=== PATIENT | female | born 1945 | race American Indian/Alaskan Native ===

== ENCOUNTER 2018-09-18 19:28 | Inpatient (IN) | payer MEDICARE, BC ==
[2018-09-18] MEDS ORDERED: DUONEB *Not for PRN Use IH ONE ×2 (19:55→22:50)
--- NOTE | 2018-09-18 20:00 | Emergency Department Report ---
HPI - General Chief Complaint: Dyspnea/Respdistress Time Seen by Provider: 09/18/18 19:50 - HPI HPI: 73 year-old female presents to the emergency department via EMS from the [facility] for evaluation of a cough and some chest c ongestion. The patient has a past medical history of CHF, dementia and hypertension. When asked what brings her to the hospital today the patient says that she does not know. When I describe triage notes regarding chest congestion and a cough the patient says "that sounds right." She was recently admitted to [facility] for about 10 days in mid to late August for some lower extremity swelling and congestion and/or shortness of breath. During that admission patient had a stress test that showed signs of previous infarction but nothing acute. She was found to have some community acquired pneumonia for which she was treated with Levaquin. There was some acute on chronic CHF at at time. ED Past Medical Hx - Past Medical History Hx Hypertension: Yes Hx Congestive Heart Failure: Yes Hx Dementia: Yes - Social History Smoking Status: Never Smoker Substance Use Type: None - Medications Home Medications: Home Medications Medication Instructions Recorded Confirmed Last Taken Type AtorvaSTATin [Lipitor] 40 mg PO QHS #30 tab 09/09/18 09/19/18 09/18/18 Rx RX: Furosemide [Lasix TAB] 40 mg PO QDAY #30 tablet 09/09/18 09/19/18 09/18/18 Rx RX: Lisinopril [Zestril TAB] 40 mg PO QDAY #30 tablet 09/09/18 09/19/18 09/18/18 Rx RX: Metoprolol [Lopressor TAB] 25 mg PO BID #60 tablet 09/09/18 09/19/18 09/18/18 Rx RX: Potassium Chloride [K-Dur] 20 meq PO DAILY #14 tablet 09/09/18 09/19/18 09/18/18 Rx ED Review of Systems ROS: Stated complaint: CONGESTION Other details as noted in HPI Comment: All other systems reviewed and negative Constitutional: denies: chills, fever Eyes: denies: eye pain, vision change ENT: denies: ear pain, throat pain Respiratory: cough, wheezing Cardiovascular: edema. denies: chest pain Gastrointestinal: denies: abdominal pain, vomiting Genitourinary: denies: dysuria, discharge Musculoskeletal: denies: back pain, arthralgia Skin: denies: rash, lesions Neurological: denies: headache, weakness Physical Exam - Physical Exam Vital Signs: Vital Signs 09/18/18 09/18/18 09/18/18 19:38 19:42 19:45 Temperature 98.4 F Pulse Rate 53 L 53 L 50 L Respiratory 17 22 25 H Rate Blood Pressure 152/80 148/72 O2 Sat by Pulse 92 100 99 Oximetry Physical Exam: GENERAL: The patient is well-developed well-nourished. HEENT: Normocephalic. Atraumatic. Patient has moist mucous membranes. EYES: Extraocular motions are intact. Pupils are equal and reactive to light bilaterally. NECK: Supple. Trachea is midline. CHEST/LUNGS: Mild wheezing throughout the chest. There are some coarse breath sounds heard. Tachypnea. No accessory muscle use. There is no respiratory distress noted. HEART/CARDIOVASCULAR: Regular. There is no tachycardia. There is no obvious murmur. ABDOMEN: Abdomen is soft, nontender. Patient has normal bowel sounds. There is no abdominal distention. SKIN: Skin is warm and dry. NEURO: The patient is awake and calm and cooperative. The patient has normal speech. MUSCULOSKELETAL: There is no tenderness or deformity. There is no evidence of acute injury. ED Course Vital Signs 09/18/18 09/18/18 09/18/18 19:38 19:42 19:45 Temperature 98.4 F Pulse Rate 53 L 53 L 50 L Respiratory 17 22 25 H Rate Blood Pressure 152/80 148/72 O2 Sat by Pulse 92 100 99 Oximetry ED Medical Decision Making - Lab Data Result diagrams: 09/18/18 20:45 09/18/18 20:45 - EKG Data -: EKG Interpreted by Me EKG shows normal: sinus rhythm (PACs), axis, intervals, QRS complexes, ST-T waves Rate: bradycardia (52 bpm) - EKG Data When compared to previous EKG there are: no significant change Interpretation: unchanged when compared t (09/04/18) - Radiology Data Radiology results: report reviewed, image reviewed interpreted by me: Chest x-ray shows a right basilar opacity concerning for infiltrate and/or pneumonia. There is some pulmonary vascular congestion. No pneumothorax, no focal consolidation. PROCEDURE: CT ANGIO CHEST TECHNIQUE: Computerized tomographic angiography of the chest was performed after the IV injection of iodinated nonionic contrast including image processing. The image data was postprocessed using 2- dimensional multiplanar reformatted (MPR) and 3-dimensional (MIP and/or volume rendered) techniques. HISTORY: SOB, elevated dimer COMPARISON: No prior studies are available for comparison. FINDINGS: Bilateral pulmonary arteries and their branches demonstrate normal opacification without filling defects. Aorta is not opacified. It is of normal caliber. Coronary arterial calcification is identified. Bilateral hilar structures are within normal limits. There is moderate degree cardiomegaly. No lymphadenopathy is noted. Thyroid is unremarkable. There is reflux of contrast into inferior vena cava and hepatic veins consistent with right heart failure. An irregular ill-defined patchy density measuring 2.0 x 2.2 centimeters is noted in the peripheral aspect of the right middle lobe. A similar but smaller patchy density measuring 1.2 x 1.2 centimeters is noted in the posterior segment left lower lobe. Liver demonstrates a hypodense lesion measuring 1.6 x 2.2 centimeters in segment 4. Vertebral height is normal. IMPRESSION: No evidence of pulmonary embolism Small patchy densities in right middle lobe and left lower lobe are consistent with pneumonia. Moderate cardiomegaly Right heart failure Hypodense lesion segment 4 left lobe liver measuring 1.6 x 2.2 centimeters. This may be further evaluated using ultrasound with Doppler or dynamic post-contrast CT abdomen Transcribed By: [facility] [place] Dictated By: FABIOLA FRY Electronically Authenticated By: FABIOLA FRY Signed Date/Time: 09/18/18 9305 - Medical Decision Making Patient was sent back to the emergency department secondary to some chest congestion and concerns of shortness of breath. Patient does have some wheezing and coarse breath sounds heard. She does not appear to be in any respiratory distress however. Labs show a BNP of about 5000 and a elevated d-dimer of greater than 3000. Chest x-ray showed a area to the right base that appears concerning for infiltrate and/or pneumonia. CT angiography of the chest shows both right middle and lower lobe patchy densities and some signs of some mild edema. The patient's BNP is coming down from when she was discharged a few days ago from 7500 to about 5000 and she is currently on Lasix already. However the patient has 2 different names of patchy densities showing a pneumonia that has not yet resolved despite a full treatment of Levaquin. Patient was given Rocephin and azithromycin. She will be admitted to the hospital for further evaluation and treatment and was accepted for admission by the hospitalist, Dr. Miller. - Differential Diagnosis pneumonia, CHF, PE, bronchitis Critical Care Time: No Critical care attestation.: If time is entered above; I have spent that time in minutes in the direct care of this critically ill patient, excluding procedure time. ED Disposition Clinical Impression: CHF (congestive heart failure) Qualifiers: Heart failure type: unspecified Heart failure chronicity: acute on chronic Qualified Code(s): I50.9 - Heart failure, unspecified Pneumonia Qualifiers: Pneumonia type: due to unspecified organism Laterality: right Lung location: unspecified part of lung Qualified Code(s): J18.9 - Pneumonia, unspecified organism Disposition: OP ADMIT IP TO THIS HOSP Is pt being admited?: Yes Condition: Fair Time of Disposition: 21:00
[2018-09-18 21:02] LABS: Eosinophils % (Auto) 1.1 % (0.0-4.3); Hemoglobin 10.3 gm/dl (10.1-14.3); Lymphocytes # (Auto) 0.8 K/mm3 (1.2-5.4); Mean Corpuscular HGB Conc 31 % (30-34); Mean Corpuscular Volume 73 fl (79-97); Monocytes # (Auto) 0.4 K/mm3 (0.0-0.8); Platelet Count 222 K/mm3 (140-440); Red Blood Count 4.54 M/mm3 (3.65-5.03)
[2018-09-18 21:21] LABS: BUN/Creatinine Ratio 29; Blood Urea Nitrogen 23 mg/dL (7-17); Calcium 8.2 mg/dL (8.4-10.2); Hemolysis Index 22
--- NOTE | 2018-09-18 21:52 | XRay Report ---
FINAL REPORT PROCEDURE: XR CHEST 1V AP TECHNIQUE: Chest radiograph anteroposterior view. CPT 13791 HISTORY: sob COMPARISON: 09/03/2018. FINDINGS: Heart: Moderate degree cardiomegaly. Mediastinum/Vessels: Normal. Lungs/Pleural space: Diffuse prominence of interstitial markings is noted. A small patchy density is noted in the peripheral aspect of right lower lobe measuring 1.9 x 1.8 centimeters. Bilateral pleural spaces are clear. L. Bony thorax: No acute osseous abnormality. Life support devices: None. IMPRESSION: Prominent interstitial markings most likely represent interstitial fibrosis versus interstitial edema Small patchy density in the peripheral right lower lobe has minimally decreased in size in the interv al most likely representing partially resolved pneumonia. Follow-up studies are recommended. Moderate degree cardiomegaly is stable.
--- NOTE | 2018-09-18 23:01 | Cat Scan Report ---
FINAL REPORT PROCEDURE: CT ANGIO CHEST TECHNIQUE: Computerized tomographic angiography of the chest was performed after the IV injection of iodinated nonionic contrast including image processing. The image data was postprocessed using 2-dim ensional multiplanar reformatted (MPR) and 3-dimensional (MIP and/or volume rendered) techniques. HISTORY: SOB, elevated dimer COMPARISON: No prior studies are available for comparison. FINDINGS: Bilateral pulmonary arteries and their branches demonstrate normal opacification without filling defe cts. Aorta is not opacified. It is of normal caliber. Coronary arterial calcification is identified. Bilateral hilar structures are within normal limits. There is moderate degree cardiomegaly. No lympha denopathy is noted. Thyroid is unremarkable. There is reflux of contrast into inferior vena cava and hepatic veins consistent with right heart failure. An irregular ill-defined patchy density measuring 2.0 x 2.2 centimeters is noted in the peripheral aspect of the right middle lobe. A similar but small er patchy density measuring 1.2 x 1.2 centimeters is noted in the posterior segment left lower lobe. Liver demonstrates a hypodense lesion measuring 1.6 x 2.2 centimeters in segment 4. Vertebral height is normal. IMPRESSION: No evidence of pulmonary embolism Small patchy densities in right middle lobe and left lower lobe are consistent with pneumonia. Moderate cardiomegaly Right heart failure Hypodense lesion segment 4 left lobe liver measuring 1.6 x 2.2 centimeters. This may be further evalu ated using ultrasound with Doppler or dynamic post-contrast CT abdomen
[2018-09-19] MEDS ORDERED: ZITHROMAX 500 MG in NACL 0.9% 250ML 250 ML IV ONE (01:00)
[2018-09-19] MEDS ORDERED: ROCEPHIN/NS 1 GM/50 ML 1 GM/50 ML BAG IV ONE (01:30)
[2018-09-19] MEDS ORDERED: ZOFRAN IV PRN (02:09)
[2018-09-19] MEDS ORDERED: SODIUM CHLORIDE FLUSH SYRINGE 10 ML IV PRN (02:09)
--- NOTE | 2018-09-19 02:10 | History and Physical Report ---
History of Present Illness Date of examination: 09/19/18 History of present illness: 72-year-old woman with no hypertension, CHF, coronary artery disease dementia comes emergency room with complaints of shortness of breath, lower extremity edema .The patient was just discharged from the hospital on September 13, she was treated for CHF, pneumonia. She still has a cough, she does not know the color of the phlegm. Review Of Systems unobtainable PAST MEDICAL HISTORY:hypertension, CHF, coronary artery disease, dementia PAST SURGICAL HISTORY:Unknown FAMILY HISTORY:Unknown SOCIAL HISTORY: Denies alcohol, tobacco, drug Medications and Allergies Allergies Allergy/AdvReac Type Severity Reaction Status Date / Time No Known Allergies Allergy Unverified 09/03/18 18:11 Home Medications Medication Instructions Recorded Confirmed Last Taken Type Aspirin [Aspirin BABY CHEW TAB] 81 mg PO QDAY #30 tab.chew 09/09/18 Unknown Rx AtorvaSTATin [Lipitor] 40 mg PO QHS #30 tab 09/09/18 Unknown Rx Furosemide [Lasix TAB] 40 mg PO QDAY #30 tablet 09/09/18 Unknown Rx Lisinopril [Zestril TAB] 40 mg PO QDAY #30 tablet 09/09/18 Unknown Rx Metoprolol [Lopressor TAB] 25 mg PO BID #60 tablet 09/09/18 Unknown Rx Potassium Chloride [K-Dur] 20 meq PO DAILY #14 tablet 09/09/18 Unknown Rx Exam - Physical Exam Narrative exam: Gen. appearance: Patient lying in bed in no acute distress HEENT: Normocephalic/atraumatic, pupils equal round reactive to light, extra alkaline movement intact, no scleral icterus, no JVD or thyromegaly or nodule, neck is supple, mucous membrane moist, no erythema or exudate Heart: S1-S2, regular rate and rhythm Lungs: Clrackles bilateral breathing comfortable Abdomen: Positive bowel sounds, nontender, nondistended, no organomegaly Extremities:1+ edema, no cyanosis, clubbing Neuro:: cranial nerves II-12 intact, speech, motor intact Skin: No rash, nodules, warm dry - Constitutional Vitals: Temp Pulse Resp BP Pulse Ox 98.4 F 58 L 14 138/62 91 09/18/18 19:42 09/19/18 00:18 09/18/18 22:15 09/19/18 00:15 09/19/18 00:15 Results - Labs CBC & Chem 7: 09/18/18 20:45 09/18/18 20:45 Labs: Abnormal lab results 09/18/18 09/18/18 09/18/18 Range/Units 20:45 20:45 20:45 WBC 2.9 L (4.5-11.0) K/mm3 MCV 73 L (79-97) fl MCH 23 L (28-32) pg RDW 19.0 H (13.2-15.2) % [place] % (Auto) 15.0 H (0.0-7.3) % Lymph # 0.8 L (1.2-5.4) K/mm3 Seg Neutrophils # 1.6 L (1.8-7.7) K/mm3 D-Dimer (0-234) ng/mlDDU Sodium 136 L (137-145) mmol/L BUN 23 H (7-17) mg/dL Calcium 8.2 L (8.4-10.2) mg/dL NT-Pro-B Natriuret Pep 5122 H (0-900) pg/mL 09/18/18 Range/Units 20:45 WBC (4.5-11.0) K/mm3 MCV (79-97) fl MCH (28-32) pg RDW (13.2-15.2) % [place] % (Auto) (0.0-7.3) % Lymph # (1.2-5.4) K/mm3 Seg Neutrophils # (1.8-7.7) K/mm3 D-Dimer 3766.87 H (0-234) ng/mlDDU Sodium (137-145) mmol/L BUN (7-17) mg/dL Calcium (8.4-10.2) mg/dL NT-Pro-B Natriuret Pep (0-900) pg/mL - Imaging and Cardiology EKG: image reviewed Chest x-ray: image reviewed CT scan - chest: report reviewed Assessment and Plan Assessment CHF acute on chronic, systolic Pneumonia, community-acquired Hypertension Coronary artery disease Dementia Plan Admit to medicine Diurese with IV lasix, start Beta analy, JASON inhibitor, aspirin check cardiac enzymes consult cardiology, recent echo was done Monitor I's and O's, daily weights Continue Levaquin for pneumonia DVT prophalaxis
[2018-09-19] MEDS: LASIX IV SCH ×2 (05:17→18:04)
[2018-09-19 06:40] LABS: Creatine Kinase MB 1.4 ng/mL (0.0-4.0)
[2018-09-19 07:23] LABS: Chol/HDL Ratio 3.53 %
[2018-09-19] MEDS: BABY ASPIRIN PO SCH (09:58)
[2018-09-19] MEDS: LOVENOX SUB-Q SCH (09:59)
[2018-09-19] MEDS: ZESTRIL PO SCH (09:59)
[2018-09-19] MEDS: LOPRESSOR PO SCH ×3 (09:59→21:35)
[2018-09-19] MEDS: SODIUM CHLORIDE FLUSH SYRINGE 10 ML IV SCH ×2 (09:59→21:35)
[2018-09-19] MEDS: LEVAQUIN PO SCH (09:59)
[2018-09-19] MEDS ORDERED: ZESTRIL PO SCH (10:00)
[2018-09-19 10:03] LABS: Creatine Kinase MB 1.5 ng/mL (0.0-4.0)
--- NOTE | 2018-09-19 10:28 | Consultation ---
History of Present Illness Consult date: 09/19/18 Requesting physician: STEVEN YOU Consult reason: congestive heart failure History of present illness: The pt is a 73 YO female with a past medical history of HFrEF, CMP, SVT, HTN, dementia. She has been seen by our practice on prior hospitalization. She is unable to provide HPI due to dementia and thus HPI obtained per the chart. She presented to the emergency department via EMS from the [facility] fo r evaluation of a cough and some chest congestion. When asked what brings her to the hospital the patient says that she does not know. She states that she "has some more work to do here". She was recently admitted to [facility] for about 10 days in mid to late August for treatment of HFrEF, SVT, PNA. Echo done 09/03/2018 showed EF 20-25%, LA severely dilated, mild MR, mod to severe TR, pseudonormalization, RV mod dilated, mild pulm HTN with RVSP 43mmHg. Lexiscan MPI stress test done 09/05/2018 showed mild ischemia, EF 16%. Past History Past Medical History: arrhythmia (SVT), heart failure, hypertension, other (dementia) Medications and Allergies Allergies Allergy/AdvReac Type Severity Reaction Status Date / Time No Known Allergies Allergy Unverified 09/03/18 18:11 Home Medications Medication Instructions Recorded Confirmed Last Taken Type AtorvaSTATin [Lipitor] 40 mg PO QHS #30 tab 09/09/18 09/19/18 09/18/18 Rx Furosemide [Lasix TAB] 40 mg PO QDAY #30 tablet 09/09/18 09/19/18 09/18/18 Rx Lisinopril [Zestril TAB] 40 mg PO QDAY #30 tablet 09/09/18 09/19/18 09/18/18 Rx Metoprolol [Lopressor TAB] 25 mg PO BID #60 tablet 09/09/18 09/19/18 09/18/18 Rx Potassium Chloride [K-Dur] 20 meq PO DAILY #14 tablet 09/09/18 09/19/18 09/18/18 Rx Active Meds: Active Medications Acetaminophen (Tylenol) 650 mg PO Q4H PRN PRN Reason: Pain MILD(1-3)/Fever >100.5/JARQUIN Aspirin (Baby Aspirin) 81 mg PO QDAY CHRISTOPHER Last Admin: 09/19/18 09:58 Dose: 81 mg Documented by: Atorvastatin Calcium (Lipitor) 40 mg PO QHS [facility] Enoxaparin Sodium (Lovenox) 40 mg SUB-Q QDAY [facility] Last Admin: 09/19/18 09:59 Dose: 40 mg Documented by: Furosemide (Lasix) 40 mg IV BID@0600,1800 [facility] Last Admin: 09/19/18 05:17 Dose: 40 mg Documented by: Levofloxacin (Levaquin) 500 mg PO DAILY [facility] Last Admin: 09/19/18 09:59 Dose: 500 mg Documented by: Lisinopril (Zestril) 5 mg PO QDAY [facility] Last Admin: 09/19/18 09:59 Dose: 5 mg Documented by: Metoprolol Tartrate (Lopressor) 25 mg PO BID [facility] Last Admin: 09/19/18 09:59 Dose: 25 mg Documented by: Ondansetron HCl (Zofran) 4 mg IV Q8H PRN PRN Reason: Nausea And Vomiting Sodium Chloride (Sodium Chloride Flush Syringe 10 Ml) 10 ml IV BID [facility] Last Admin: 09/19/18 09:59 Dose: 10 ml Documented by: Sodium Chloride (Sodium Chloride Flush Syringe 10 Ml) 10 ml IV PRN PRN PRN Reason: LINE FLUSH Review of Systems All systems: negative (no current complaints) Physical Examination Vital Signs Pulse Resp Pulse Ox 53 L 17 92 09/18/18 19:38 09/18/18 19:38 09/18/18 19:38 General appearance: no acute distress HEENT: Positive: PERRL Neck: Positive: neck supple, trachea midline Cardiac: Positive: Reg Rate and Rhythm, S1/S2 Lungs: Positive: Decreased Breath Sounds Neuro: Positive: Grossly Intact, Other (dementia) Abdomen: Negative: Tender Skin: Negative: Rash, Wound Musculoskeletal: No Pain Extremities: Present: edema (trace BLE) Results 09/18/18 20:45 09/18/18 20:45 Cardiac Enzymes 09/19/18 09/19/18 Range/Units 05:48 09:36 CK-MB (CK-2) 1.4 1.5 (0.0-4.0) ng/mL Lipids 09/19/18 Range/Units 05:48 Triglycerides 84 (2-149) mg/dL Cholesterol 152 (50-199) mg/dL HDL Cholesterol 43 (40-59) mg/dL Cholesterol/HDL Ratio 3.53 % CBC 09/18/18 Range/Units 20:45 WBC 2.9 L (4.5-11.0) K/mm3 RBC 4.54 (3.65-5.03) M/mm3 Hgb 10.3 (10.1-14.3) gm/dl Hct 33.0 (30.3-42.9) % Plt Count 222 (140-440) K/mm3 Lymph # 0.8 L (1.2-5.4) K/mm3 [place] # 0.4 (0.0-0.8) K/mm3 Eos # 0.0 (0.0-0.4) K/mm3 Baso # 0.0 (0.0-0.1) K/mm3 Comprehensive Metabolic Panel 09/18/18 Range/Units 20:45 Sodium 136 L (137-145) mmol/L Potassium 4.5 (3.6-5.0) mmol/L Chloride 100.9 (98-107) mmol/L Carbon Dioxide 26 (22-30) mmol/L BUN 23 H (7-17) mg/dL Creatinine 0.8 (0.7-1.2) mg/dL Glucose 93 (65-100) mg/dL Calcium 8.2 L (8.4-10.2) mg/dL - Imaging and Cardiology Echo: report reviewed (09/03/2018 showed EF 20-25%, LA severely dilated, mild MR, mod to severe TR, pseudonormalization, RV mod dilated, mild pulm HTN with RVSP 43mmHg. ) EKG: report reviewed, image reviewed EKG interpretations - Telemetry EKG Rhythm: Sinus Bradycardia - EKG Sinus rhythms and dysrhythmias: sinus rhythm Assessment and Plan Echo done 09/03/2018 showed EF 20-25%, LA severely dilated, mild MR, mod to severe TR, pseudonormalization, RV mod dilated, mild pulm HTN with RVSP 43mmHg. Lexiscan MPI stress test done 09/05/2018 showed mild ischemia, EF 16%. DDimer elevated - chest CTA negative for PE. Agree with present cardiac management. Abx per primary. The patient has been seen in conjunction with Dr. Alvarado who agrees with the assessment and plan of care. - Patient Problems (1) Acute HFrEF (heart failure with reduced ejection fraction) Current Visit: Yes Status: Acute (2) Pneumonia Current Visit: Yes Status: Acute Qualifiers: Pneumonia type: due to unspecified organism Laterality: right Lung location: unspecified part of lung Qualified Code(s): J18.9 - Pneumonia, unspecified organism (3) Cardiomyopathy Current Visit: Yes Status: Chronic (4) Hypertension Current Visit: Yes Status: Chronic Qualifiers: Hypertension type: essential hypertension Qualified Code(s): I10 - Essential (primary) hypertension (5) H/O supraventricular tachycardia Current Visit: Yes Status: Chronic (6) Dementia Current Visit: Yes Status: Chronic
--- NOTE | 2018-09-19 17:11 | Event Note ---
Date: 09/19/18 Patient presented with shortness of breath. She is diagnosed with CHF exacerbation, pneumonia. I have seen and examined her. cont mery Garza.
[2018-09-20 05:22] LABS: Basophils % (Auto) 0.6 % (0.0-1.8); Eosinophils # (Auto) 0.1 K/mm3 (0.0-0.4); Eosinophils % (Auto) 4.7 % (0.0-4.3); Hematocrit 29.6 % (30.3-42.9); Hemoglobin 9.3 gm/dl (10.1-14.3); Lymphocytes % (Auto) 34.1 % (13.4-35.0); Mean Corpuscular HGB Conc 32 % (30-34); Mean Corpuscular Volume 72 fl (79-97); Monocytes # (Auto) 0.3 K/mm3 (0.0-0.8); Monocytes % (Auto) 11.2 % (0.0-7.3); Platelet Count 253 K/mm3 (140-440); Red Cell Distribution Width 18.8 % (13.2-15.2)
[2018-09-20 05:44] LABS: BUN/Creatinine Ratio 31; Blood Urea Nitrogen 22 mg/dL (7-17); Calcium 8.2 mg/dL (8.4-10.2); Hemolysis Index 0
[2018-09-20] MEDS: LASIX IV SCH ×2 (06:45→19:03)
[2018-09-20] MEDS: BABY ASPIRIN PO SCH (09:41)
[2018-09-20] MEDS: LEVAQUIN PO SCH (09:41)
[2018-09-20] MEDS: ZESTRIL PO SCH (09:41)
[2018-09-20] MEDS: LOPRESSOR PO SCH (09:42)
[2018-09-20] MEDS: LOVENOX SUB-Q SCH (09:42)
[2018-09-20] MEDS: SODIUM CHLORIDE FLUSH SYRINGE 10 ML IV SCH ×2 (09:43→22:14)
--- NOTE | 2018-09-20 13:29 | Progress Note ---
Assessment and Plan Hold home lopressor in setting of persistent sinus bradycardia. Cont IV diuretics. Abx per primary. Possible d/c from cardiology standpoint in AM. The patient has been seen in conjunction with Dr. Alvarado who agrees with the assessment and plan of care. - Patient Problems (1) Acute HFrEF (heart failure with reduced ejection fraction) Current Visit: Yes Status: Acute (2) Pneumonia Current Visit: Yes Status: Acute Qualifiers: Pneumonia type: due to unspecified organism Laterality: right Lung location: unspecified part of lung Qualified Code(s): J18.9 - Pneumonia, unspecified organism (3) Cardiomyopathy Current Visit: Yes Status: Chronic (4) Hypertension Current Visit: Yes Status: Chronic Qualifiers: Hypertension type: essential hypertension Qualified Code(s): I10 - Essential (primary) hypertension (5) H/O supraventricular tachycardia Current Visit: Yes Status: Chronic (6) Dementia Current Visit: Yes Status: Chronic Subjective Date of service: 09/20/18 Principal diagnosis: HF Interval history: pt resting in bed, no current complaints. tele reviewed - in sinus bradycardia HR 40s overnight. Objective Last Vital Signs Temp 98.0 F 09/20/18 09:10 Pulse 48 L 09/20/18 09:42 Resp 18 09/20/18 09:10 BP 148/78 09/20/18 09:42 Pulse Ox 98 09/20/18 09:10 - Physical Examination General: No Apparent Distress HEENT: Positive: PERRL Neck: Positive: neck supple, trachea midline Cardiac: Positive: Regular Rhythm, S1/S2 Lungs: Positive: Decreased Breath Sounds Neuro: Positive: Grossly Intact, Other (dementia) Abdomen: Negative: Tender Skin: Negative: Rash, Wound Musculoskeletal: No Pain Extremities: Present: edema (trace BLE) - Labs and Meds CBC 09/20/18 Range/Units 04:54 WBC 2.9 L (4.5-11.0) K/mm3 RBC 4.10 (3.65-5.03) M/mm3 Hgb 9.3 L (10.1-14.3) gm/dl Hct 29.6 L (30.3-42.9) % Plt Count 253 (140-440) K/mm3 Lymph # 1.0 L (1.2-5.4) K/mm3 [place] # 0.3 (0.0-0.8) K/mm3 Eos # 0.1 (0.0-0.4) K/mm3 Baso # 0.0 (0.0-0.1) K/mm3 Comprehensive Metabolic Panel 09/20/18 Range/Units 04:54 Sodium 142 (137-145) mmol/L Potassium 3.9 (3.6-5.0) mmol/L Chloride 102.9 (98-107) mmol/L Carbon Dioxide 29 (22-30) mmol/L BUN 22 H (7-17) mg/dL Creatinine 0.7 (0.7-1.2) mg/dL Glucose 81 (65-100) mg/dL Calcium 8.2 L (8.4-10.2) mg/dL - Imaging and Cardiology EKG: report reviewed, image reviewed Echo: report reviewed (09/03/2018 showed EF 20-25%, LA severely dilated, mild MR, mod to severe TR, pseudonormalization, RV mod dilated, mild pulm HTN with RVSP 43mmHg. ) - Telemetry EKG Rhythm: Sinus Bradycardia - EKG Sinus rhythms and dysrhythmias: sinus rhythm
--- NOTE | 2018-09-20 16:02 | Progress Note ---
Assessment and Plan Assessment and plan: Assessment Acute on chronic, systolic CHF Pneumonia, community-acquired Hypertension Coronary artery disease Dementia Plan Admited to Tele Lasix IV Continue analy, JASON inhibitor, aspirin check cardiac enzymes Cardiology, recent echo was done Monitor I's and O's, daily weights Continue Levaquin for pneumonia DVT prophylaxis with Lovenox Discussed with Case management concerning placement History Interval history: Shortness of breath Hospitalist Physical - Physical exam Narrative exam: GEN: Not in acute distress, malnourished HEENT: Normocephalic, atraumatic, Neck: supple, No JVD Lungs: Bilateral crackles,, no wheeze Heart:S1 and S2 regular, no murmurs, rubs or gallop, Abd:soft, non tender, non distended, normal bowel sounds Ext: No edema, no clubbing or cyanosis Neuro: Awake,alert, oriented x 3, No focal signs psych:Normal mood - Constitutional Vitals: Temp Pulse Resp BP Pulse Ox 98.0 F 47 L 18 148/78 98 09/20/18 09:10 09/20/18 12:00 09/20/18 09:10 09/20/18 09:42 09/20/18 09:10 General appearance: Present: no acute distress Results - Labs CBC & Chem 7: 09/20/18 04:54 09/20/18 04:54 Labs: Laboratory Last Values WBC 2.9 K/mm3 (4.5-11.0) L 09/20/18 04:54 RBC 4.10 M/mm3 (3.65-5.03) 09/20/18 04:54 Hgb 9.3 gm/dl (10.1-14.3) L 09/20/18 04:54 Hct 29.6 % (30.3-42.9) L 09/20/18 04:54 MCV 72 fl (79-97) L 09/20/18 04:54 MCH 23 pg (28-32) L 09/20/18 04:54 MCHC 32 % (30-34) 09/20/18 04:54 RDW 18.8 % (13.2-15.2) H 09/20/18 04:54 Plt Count 253 K/mm3 (140-440) 09/20/18 04:54 Lymph % (Auto) 34.1 % (13.4-35.0) 09/20/18 04:54 [place] % (Auto) 11.2 % (0.0-7.3) H 09/20/18 04:54 Eos % (Auto) 4.7 % (0.0-4.3) H 09/20/18 04:54 Baso % (Auto) 0.6 % (0.0-1.8) 09/20/18 04:54 Lymph # 1.0 K/mm3 (1.2-5.4) L 09/20/18 04:54 [place] # 0.3 K/mm3 (0.0-0.8) 09/20/18 04:54 Eos # 0.1 K/mm3 (0.0-0.4) 09/20/18 04:54 Baso # 0.0 K/mm3 (0.0-0.1) 09/20/18 04:54 Seg Neutrophils % 49.4 % (40.0-70.0) 09/20/18 04:54 Seg Neutrophils # 1.4 K/mm3 (1.8-7.7) L 09/20/18 04:54 D-Dimer 3766.87 ng/mlDDU (0-234) H 09/18/18 20:45 Sodium 142 mmol/L (137-145) 09/20/18 04:54 Potassium 3.9 mmol/L (3.6-5.0) 09/20/18 04:54 Chloride 102.9 mmol/L (98-107) 09/20/18 04:54 Carbon Dioxide 29 mmol/L (22-30) 09/20/18 04:54 Anion Gap 14 mmol/L 09/20/18 04:54 BUN 22 mg/dL (7-17) H 09/20/18 04:54 Creatinine 0.7 mg/dL (0.7-1.2) 09/20/18 04:54 Estimated GFR > 60 ml/min 09/20/18 04:54 BUN/Creatinine Ratio 31 % 09/20/18 04:54 Glucose 81 mg/dL (65-100) 09/20/18 04:54 POC Glucose 122 (70-105) H 09/19/18 15:21 Calcium 8.2 mg/dL (8.4-10.2) L 09/20/18 04:54 Total Creatine Kinase 57 units/L (30-135) 09/19/18 09:36 CK-MB (CK-2) 1.5 ng/mL (0.0-4.0) 09/19/18 09:36 CK-MB (CK-2) Rel Index 2.6 (0-4) 09/19/18 09:36 Troponin T 0.032 ng/mL (0.00-0.029) H D 09/19/18 09:36 NT-Pro-B Natriuret Pep 5122 pg/mL (0-900) H 09/18/18 20:45 Triglycerides 84 mg/dL (2-149) 09/19/18 05:48 Cholesterol 152 mg/dL (50-199) 09/19/18 05:48 LDL Cholesterol Direct 101 mg/dL (50-130) 09/19/18 05:48 HDL Cholesterol 43 mg/dL (40-59) 09/19/18 05:48 Cholesterol/HDL Ratio 3.53 % 09/19/18 05:48 Nutrition/Malnutrition Assess - Dietary Evaluation Nutrition/Malnutrition Findings: Nutrition Notes Start: 09/19/18 14:51 Freq: Status: Active Protocol: Document 09/19/18 14:53 RM (Rec: 09/19/18 15:00 RM [id number]) Nutrition Notes Initial or Follow up Assessment Current Diagnoses Coronary Artery Disease Hypertension Heart Failure Other Pertinent Diagnosis Dementia, Pneu Current Diet Cardiac Labs/Tests Reviewed Medications Lasix Height 5 ft 7 in Weight 49.895 kg [place] Body Weight (lbs) 135.0 BMI 17.2 Subjective/Other Information Pt screened for low BMI. Pt asleep at time of visit and no family present to facilitate assessment. Noted temporal wasting. Burn Absent Trauma Absent #1 Nutrition Diagnoses Predicted suboptimal energy intake Etiology dementia As Evidenced by Signs and Symptoms pt BMI of 17.2 Is patient on ventilator? No Is Patient Ambulatory and/or Out of Bed No REE-([facility]-confined to bed) 1244.400 Kcal/Kg value to use for calculation 31 Approximate Energy Requirements Using 1547 kcal/Kg Calculation Used for Recommendations Kcal/kg Additional Notes Protein Needs: 50-60g (1-1.2g/ kg) Fluid Needs: 1 ml/kcal Nutrition Intervention Change Diet Order: Continue current Add Supplement/Snack (indicate name/kcal Ensure Enlive 1 daily /protein ) Provides kCal: 350 Provides Protein (gm) 20 Goal #1 Meet at least 75% of calorie and protein needs via PO and ONS intakes Anticipated Discharge Needs: Cardiac diet Follow-Up By: 09/23/18 Additional Comments Follow for PO and ONS intakes
[2018-09-21] MEDS: LASIX IV SCH ×2 (05:45→17:46)
[2018-09-21] MEDS: BABY ASPIRIN PO SCH (11:52)
[2018-09-21] MEDS: LEVAQUIN PO SCH (11:52)
[2018-09-21] MEDS: LOVENOX SUB-Q SCH (11:52)
[2018-09-21] MEDS: ZESTRIL PO SCH (11:52)
[2018-09-21] MEDS: SODIUM CHLORIDE FLUSH SYRINGE 10 ML IV SCH ×2 (11:53→21:55)
--- NOTE | 2018-09-21 17:36 | Progress Note ---
Assessment and Plan Assessment and plan: Assessment Acute on chronic, systolic CHF Pneumonia, community-acquired Hypertension Hyperlipidemia Coronary artery disease Dementia Sinus bradycardia Plan Admited to Tele Lasix IV Continue JASON inhibitor, Metoprolol and hold because of sinus bradycardia aspirin check cardiac enzymes Cardiology, recent echo was done Monitor I's and O's, daily weights Continue Levaquin for pneumonia Statin for hyperlipidemia DVT prophylaxis with Lovenox Discussed with Case management concerning placement History Interval history: Less shortness of breath No chest pain Hospitalist Physical - Physical exam Narrative exam: GEN: Not in acute distress, malnourished HEENT: Normocephalic, atraumatic, Neck: supple, No JVD Lungs: Bilateral crackles,, no wheeze Heart:S1 and S2 regular, no murmurs, rubs or gallop, Abd:soft, non tender, non distended, normal bowel sounds Ext: No edema, no clubbing or cyanosis Neuro: Awake,alert, oriented x 3, No focal signs psych:Normal mood - Constitutional Vitals: Temp Pulse Resp BP Pulse Ox 97.9 F 52 L 16 167/70 100 09/21/18 15:57 09/21/18 15:57 09/21/18 15:57 09/21/18 15:57 09/21/18 15:57 General appearance: Present: no acute distress Results - Labs CBC & Chem 7: 09/20/18 04:54 09/20/18 04:54 Labs: Laboratory Last Values WBC 2.9 K/mm3 (4.5-11.0) L 09/20/18 04:54 RBC 4.10 M/mm3 (3.65-5.03) 09/20/18 04:54 Hgb 9.3 gm/dl (10.1-14.3) L 09/20/18 04:54 Hct 29.6 % (30.3-42.9) L 09/20/18 04:54 MCV 72 fl (79-97) L 09/20/18 04:54 MCH 23 pg (28-32) L 09/20/18 04:54 MCHC 32 % (30-34) 09/20/18 04:54 RDW 18.8 % (13.2-15.2) H 09/20/18 04:54 Plt Count 253 K/mm3 (140-440) 09/20/18 04:54 Lymph % (Auto) 34.1 % (13.4-35.0) 09/20/18 04:54 [place] % (Auto) 11.2 % (0.0-7.3) H 09/20/18 04:54 Eos % (Auto) 4.7 % (0.0-4.3) H 09/20/18 04:54 Baso % (Auto) 0.6 % (0.0-1.8) 09/20/18 04:54 Lymph # 1.0 K/mm3 (1.2-5.4) L 09/20/18 04:54 [place] # 0.3 K/mm3 (0.0-0.8) 09/20/18 04:54 Eos # 0.1 K/mm3 (0.0-0.4) 09/20/18 04:54 Baso # 0.0 K/mm3 (0.0-0.1) 09/20/18 04:54 Seg Neutrophils % 49.4 % (40.0-70.0) 09/20/18 04:54 Seg Neutrophils # 1.4 K/mm3 (1.8-7.7) L 09/20/18 04:54 D-Dimer 3766.87 ng/mlDDU (0-234) H 09/18/18 20:45 Sodium 142 mmol/L (137-145) 09/20/18 04:54 Potassium 3.9 mmol/L (3.6-5.0) 09/20/18 04:54 Chloride 102.9 mmol/L (98-107) 09/20/18 04:54 Carbon Dioxide 29 mmol/L (22-30) 09/20/18 04:54 Anion Gap 14 mmol/L 09/20/18 04:54 BUN 22 mg/dL (7-17) H 09/20/18 04:54 Creatinine 0.7 mg/dL (0.7-1.2) 09/20/18 04:54 Estimated GFR > 60 ml/min 09/20/18 04:54 BUN/Creatinine Ratio 31 % 09/20/18 04:54 Glucose 81 mg/dL (65-100) 09/20/18 04:54 POC Glucose 122 (70-105) H 09/19/18 15:21 Calcium 8.2 mg/dL (8.4-10.2) L 09/20/18 04:54 Total Creatine Kinase 57 units/L (30-135) 09/19/18 09:36 CK-MB (CK-2) 1.5 ng/mL (0.0-4.0) 09/19/18 09:36 CK-MB (CK-2) Rel Index 2.6 (0-4) 09/19/18 09:36 Troponin T 0.032 ng/mL (0.00-0.029) H D 09/19/18 09:36 NT-Pro-B Natriuret Pep 5122 pg/mL (0-900) H 09/18/18 20:45 Triglycerides 84 mg/dL (2-149) 09/19/18 05:48 Cholesterol 152 mg/dL (50-199) 09/19/18 05:48 LDL Cholesterol Direct 101 mg/dL (50-130) 09/19/18 05:48 HDL Cholesterol 43 mg/dL (40-59) 09/19/18 05:48 Cholesterol/HDL Ratio 3.53 % 09/19/18 05:48 Nutrition/Malnutrition Assess - Dietary Evaluation Nutrition/Malnutrition Findings: Nutrition Notes Start: 09/19/18 14:51 Freq: Status: Active Protocol: Document 09/19/18 14:53 RM (Rec: 09/19/18 15:00 RM [id number]) Nutrition Notes Initial or Follow up Assessment Current Diagnoses Coronary Artery Disease Hypertension Heart Failure Other Pertinent Diagnosis Dementia, Pneu Current Diet Cardiac Labs/Tests Reviewed Medications Lasix Height 5 ft 7 in Weight 49.895 kg [place] Body Weight (lbs) 135.0 BMI 17.2 Subjective/Other Information Pt screened for low BMI. Pt asleep at time of visit and no family present to facilitate assessment. Noted temporal wasting. Burn Absent Trauma Absent #1 Nutrition Diagnoses Predicted suboptimal energy intake Etiology dementia As Evidenced by Signs and Symptoms pt BMI of 17.2 Is patient on ventilator? No Is Patient Ambulatory and/or Out of Bed No REE-([facility]-confined to bed) 1244.400 Kcal/Kg value to use for calculation 31 Approximate Energy Requirements Using 1547 kcal/Kg Calculation Used for Recommendations Kcal/kg Additional Notes Protein Needs: 50-60g (1-1.2g/ kg) Fluid Needs: 1 ml/kcal Nutrition Intervention Change Diet Order: Continue current Add Supplement/Snack (indicate name/kcal Ensure Enlive 1 daily /protein ) Provides kCal: 350 Provides Protein (gm) 20 Goal #1 Meet at least 75% of calorie and protein needs via PO and ONS intakes Anticipated Discharge Needs: Cardiac diet Follow-Up By: 09/23/18 Additional Comments Follow for PO and ONS intakes
--- NOTE | 2018-09-21 17:54 | Progress Note ---
Assessment and Plan Leukopenia Sinus bradycardia Asymptomatic No AV yosef blocking agents at this time HFrEF 20-25%/Cardiomyopathy gentle diuresis consider PO furosemide No beta analy 2/2 bradycardia Continue Zestril, titrate as needed for BP control Hypertension History of SVT Pneumonia Dementia awaiting placement Subjective Date of service: 09/21/18 Principal diagnosis: HFrEF Interval history: Patient lying in bed watching television without complaints Objective Vital Signs Temp Pulse Pulse Pulse Resp BP Pulse Ox 09/21/18 15:57 97.9 F 52 L 16 167/70 100 09/21/18 12:50 98.4 F 51 L 14 167/82 97 09/21/18 10:00 46 L 09/21/18 04:33 98.3 F 51 L 18 146/70 96 09/21/18 04:00 51 L 09/20/18 22:55 98.4 F 51 L 17 144/76 97 09/20/18 22:00 48 L 48 L 09/20/18 20:00 48 L 09/20/18 19:40 98.3 F 48 L 18 140/65 99 - Physical Examination General: No Apparent Distress HEENT: Positive: PERRL Neck: Positive: neck supple, trachea midline Cardiac: Positive: Reg Rate and Rhythm Lungs: Positive: clear to auscultation, Normal Breath Sounds Neuro: Positive: Grossly Intact, Other (dementia) Abdomen: Positive: Soft, Active Bowel Sounds. Negative: Tender Skin: Negative: Rash, Wound Musculoskeletal: No Pain Extremities: Present: edema (trace BLE) - Imaging and Cardiology EKG: report reviewed, image reviewed Echo: report reviewed (09/03/2018 showed EF 20-25%, LA severely dilated, mild MR, mod to severe TR, pseudonormalization, RV mod dilated, mild pulm HTN with RVSP 43mmHg. ) - EKG Sinus rhythms and dysrhythmias: sinus rhythm
[2018-09-22] MEDS: LASIX IV SCH ×2 (06:40→17:57)
[2018-09-22] MEDS: LOVENOX SUB-Q SCH (09:36)
[2018-09-22] MEDS: LEVAQUIN PO SCH (09:37)
[2018-09-22] MEDS: SODIUM CHLORIDE FLUSH SYRINGE 10 ML IV SCH ×2 (09:37→21:40)
[2018-09-22] MEDS: BABY ASPIRIN PO SCH (09:37)
[2018-09-22] MEDS: ZESTRIL PO SCH (09:37)
--- NOTE | 2018-09-22 10:53 | Progress Note ---
Assessment and Plan Assessment and plan: Assessment Acute on chronic, systolic CHF Pneumonia, community-acquired Hypertension Hyperlipidemia Coronary artery disease Dementia Sinus bradycardia Plan Admited to Tele Lasix IV Continue JASON inhibitor, Metoprolol and hold because of sinus bradycardia aspirin check cardiac enzymes Cardiology, recent echo was done Monitor I's and O's, daily weights Continue Levaquin for pneumonia Statin for hyperlipidemia DVT prophylaxis with Lovenox Discussed with Case management concerning placement Awaiting placement. Medically stable for dc History Interval history: Less shortness of breath No chest pain Hospitalist Physical - Physical exam Narrative exam: GEN: Not in acute distress, malnourished HEENT: Normocephalic, atraumatic, Neck: supple, No JVD Lungs: Bilateral crackles,, no wheeze Heart:S1 and S2 regular, no murmurs, rubs or gallop, Abd:soft, non tender, non distended, normal bowel sounds Ext: No edema, no clubbing or cyanosis Neuro: Awake,alert, oriented x 3, No focal signs psych:Normal mood - Constitutional Vitals: Temp Pulse Resp BP Pulse Ox 98.0 F 52 L 18 147/72 97 09/22/18 07:53 09/22/18 10:00 09/22/18 07:53 09/22/18 07:53 09/22/18 07:53 General appearance: Present: no acute distress Results - Labs CBC & Chem 7: 09/20/18 04:54 09/20/18 04:54 Labs: Laboratory Last Values WBC 2.9 K/mm3 (4.5-11.0) L 09/20/18 04:54 RBC 4.10 M/mm3 (3.65-5.03) 09/20/18 04:54 Hgb 9.3 gm/dl (10.1-14.3) L 09/20/18 04:54 Hct 29.6 % (30.3-42.9) L 09/20/18 04:54 MCV 72 fl (79-97) L 09/20/18 04:54 MCH 23 pg (28-32) L 09/20/18 04:54 MCHC 32 % (30-34) 09/20/18 04:54 RDW 18.8 % (13.2-15.2) H 09/20/18 04:54 Plt Count 253 K/mm3 (140-440) 09/20/18 04:54 Lymph % (Auto) 34.1 % (13.4-35.0) 09/20/18 04:54 [place] % (Auto) 11.2 % (0.0-7.3) H 09/20/18 04:54 Eos % (Auto) 4.7 % (0.0-4.3) H 09/20/18 04:54 Baso % (Auto) 0.6 % (0.0-1.8) 09/20/18 04:54 Lymph # 1.0 K/mm3 (1.2-5.4) L 09/20/18 04:54 [place] # 0.3 K/mm3 (0.0-0.8) 09/20/18 04:54 Eos # 0.1 K/mm3 (0.0-0.4) 09/20/18 04:54 Baso # 0.0 K/mm3 (0.0-0.1) 09/20/18 04:54 Seg Neutrophils % 49.4 % (40.0-70.0) 09/20/18 04:54 Seg Neutrophils # 1.4 K/mm3 (1.8-7.7) L 09/20/18 04:54 D-Dimer 3766.87 ng/mlDDU (0-234) H 09/18/18 20:45 Sodium 142 mmol/L (137-145) 09/20/18 04:54 Potassium 3.9 mmol/L (3.6-5.0) 09/20/18 04:54 Chloride 102.9 mmol/L (98-107) 09/20/18 04:54 Carbon Dioxide 29 mmol/L (22-30) 09/20/18 04:54 Anion Gap 14 mmol/L 09/20/18 04:54 BUN 22 mg/dL (7-17) H 09/20/18 04:54 Creatinine 0.7 mg/dL (0.7-1.2) 09/20/18 04:54 Estimated GFR > 60 ml/min 09/20/18 04:54 BUN/Creatinine Ratio 31 % 09/20/18 04:54 Glucose 81 mg/dL (65-100) 09/20/18 04:54 POC Glucose 122 (70-105) H 09/19/18 15:21 Calcium 8.2 mg/dL (8.4-10.2) L 09/20/18 04:54 Total Creatine Kinase 57 units/L (30-135) 09/19/18 09:36 CK-MB (CK-2) 1.5 ng/mL (0.0-4.0) 09/19/18 09:36 CK-MB (CK-2) Rel Index 2.6 (0-4) 09/19/18 09:36 Troponin T 0.032 ng/mL (0.00-0.029) H D 09/19/18 09:36 NT-Pro-B Natriuret Pep 5122 pg/mL (0-900) H 09/18/18 20:45 Triglycerides 84 mg/dL (2-149) 09/19/18 05:48 Cholesterol 152 mg/dL (50-199) 09/19/18 05:48 LDL Cholesterol Direct 101 mg/dL (50-130) 09/19/18 05:48 HDL Cholesterol 43 mg/dL (40-59) 09/19/18 05:48 Cholesterol/HDL Ratio 3.53 % 09/19/18 05:48 Nutrition/Malnutrition Assess - Dietary Evaluation Nutrition/Malnutrition Findings: Nutrition Notes Start: 09/19/18 14:51 Freq: Status: Active Protocol: Document 09/19/18 14:53 RM (Rec: 09/19/18 15:00 RM [id number]) Nutrition Notes Initial or Follow up Assessment Current Diagnoses Coronary Artery Disease Hypertension Heart Failure Other Pertinent Diagnosis Dementia, Pneu Current Diet Cardiac Labs/Tests Reviewed Medications Lasix Height 5 ft 7 in Weight 49.895 kg [place] Body Weight (lbs) 135.0 BMI 17.2 Subjective/Other Information Pt screened for low BMI. Pt asleep at time of visit and no family present to facilitate assessment. Noted temporal wasting. Burn Absent Trauma Absent #1 Nutrition Diagnoses Predicted suboptimal energy intake Etiology dementia As Evidenced by Signs and Symptoms pt BMI of 17.2 Is patient on ventilator? No Is Patient Ambulatory and/or Out of Bed No [facility] 1244.400 Kcal/Kg value to use for calculation 31 Approximate Energy Requirements Using 1547 kcal/Kg Calculation Used for Recommendations Kcal/kg Additional Notes Protein Needs: 50-60g (1-1.2g/ kg) Fluid Needs: 1 ml/kcal Nutrition Intervention Change Diet Order: Continue current Add Supplement/Snack (indicate name/kcal Ensure Enlive 1 daily /protein ) Provides kCal: 350 Provides Protein (gm) 20 Goal #1 Meet at least 75% of calorie and protein needs via PO and ONS intakes Anticipated Discharge Needs: Cardiac diet Follow-Up By: 09/23/18 Additional Comments Follow for PO and ONS intakes
[2018-09-22] MEDS: TYLENOL PO PRN ×2 (14:42→19:51)
[2018-09-23] MEDS: TYLENOL PO PRN ×3 (00:20→18:05)
[2018-09-23] MEDS: LASIX IV SCH (05:02)
[2018-09-23] MEDS: LEVAQUIN PO SCH (10:02)
[2018-09-23] MEDS: LOVENOX SUB-Q SCH (10:02)
[2018-09-23] MEDS: ZESTRIL PO SCH ×2 (10:02→14:27)
[2018-09-23] MEDS: BABY ASPIRIN PO SCH (10:03)
--- NOTE | 2018-09-23 13:46 | Progress Note ---
Assessment and Plan Assessment and plan: Patient is 73 yo with CHF, CAD, dementia. She presented with shortness of breath. She was diagnosed with acute respiratory failure, acute on chronic systolic CHF and pneumonia. She was put on Lasix IV, antibiotics. She improved , stabilized. Patient was evaluated by physical therapy and [facility] facility recommended. She is medically stable and awaiting placement to [facility] facility. Assessment Acute respiratory failure Acute on chronic, systolic CHF Pneumonia, community-acquired Hypertension Hyperlipidemia Coronary artery disease Dementia Sinus bradycardia Plan Lasix IV Continue JASON inhibitor, Metoprolol and hold because of sinus bradycardia aspirin Cardiology following Monitor I's and O's, daily weights Continue Levaquin for pneumonia Statin for hyperlipidemia DVT prophylaxis with Lovenox Discussed with Case management concerning placement Awaiting placement. Medically stable for dc History Interval history: Less shortness of breath No chest pain Hospitalist Physical - Physical exam Narrative exam: GEN: Not in acute distress, malnourished HEENT: Normocephalic, atraumatic, Neck: supple, No JVD Lungs: Clear to auscultation, Bilateral crackles,, no wheeze Heart:S1 and S2 regular, no murmurs, rubs or gallop, Abd:soft, non tender, non distended, normal bowel sounds Ext: No edema, no clubbing or cyanosis Neuro: Awake,alert, oriented x 3, No focal signs psych:Normal mood - Constitutional Vitals: Temp Pulse Resp BP Pulse Ox 98.8 F 70 20 166/87 96 09/23/18 07:47 09/23/18 10:00 09/23/18 07:47 09/23/18 07:47 09/23/18 07:47 General appearance: Present: no acute distress Results - Labs CBC & Chem 7: 09/20/18 04:54 09/20/18 04:54 Labs: Laboratory Last Values WBC 2.9 K/mm3 (4.5-11.0) L 09/20/18 04:54 RBC 4.10 M/mm3 (3.65-5.03) 09/20/18 04:54 Hgb 9.3 gm/dl (10.1-14.3) L 09/20/18 04:54 Hct 29.6 % (30.3-42.9) L 09/20/18 04:54 MCV 72 fl (79-97) L 09/20/18 04:54 MCH 23 pg (28-32) L 09/20/18 04:54 MCHC 32 % (30-34) 09/20/18 04:54 RDW 18.8 % (13.2-15.2) H 09/20/18 04:54 Plt Count 253 K/mm3 (140-440) 09/20/18 04:54 Lymph % (Auto) 34.1 % (13.4-35.0) 09/20/18 04:54 [place] % (Auto) 11.2 % (0.0-7.3) H 09/20/18 04:54 Eos % (Auto) 4.7 % (0.0-4.3) H 09/20/18 04:54 Baso % (Auto) 0.6 % (0.0-1.8) 09/20/18 04:54 Lymph # 1.0 K/mm3 (1.2-5.4) L 09/20/18 04:54 [place] # 0.3 K/mm3 (0.0-0.8) 09/20/18 04:54 Eos # 0.1 K/mm3 (0.0-0.4) 09/20/18 04:54 Baso # 0.0 K/mm3 (0.0-0.1) 09/20/18 04:54 Seg Neutrophils % 49.4 % (40.0-70.0) 09/20/18 04:54 Seg Neutrophils # 1.4 K/mm3 (1.8-7.7) L 09/20/18 04:54 D-Dimer 3766.87 ng/mlDDU (0-234) H 09/18/18 20:45 Sodium 142 mmol/L (137-145) 09/20/18 04:54 Potassium 3.9 mmol/L (3.6-5.0) 09/20/18 04:54 Chloride 102.9 mmol/L (98-107) 09/20/18 04:54 Carbon Dioxide 29 mmol/L (22-30) 09/20/18 04:54 Anion Gap 14 mmol/L 09/20/18 04:54 BUN 22 mg/dL (7-17) H 09/20/18 04:54 Creatinine 0.7 mg/dL (0.7-1.2) 09/20/18 04:54 Estimated GFR > 60 ml/min 09/20/18 04:54 BUN/Creatinine Ratio 31 % 09/20/18 04:54 Glucose 81 mg/dL (65-100) 09/20/18 04:54 POC Glucose 122 (70-105) H 09/19/18 15:21 Calcium 8.2 mg/dL (8.4-10.2) L 09/20/18 04:54 Total Creatine Kinase 57 units/L (30-135) 09/19/18 09:36 CK-MB (CK-2) 1.5 ng/mL (0.0-4.0) 09/19/18 09:36 CK-MB (CK-2) Rel Index 2.6 (0-4) 09/19/18 09:36 Troponin T 0.032 ng/mL (0.00-0.029) H D 09/19/18 09:36 NT-Pro-B Natriuret Pep 5122 pg/mL (0-900) H 09/18/18 20:45 Triglycerides 84 mg/dL (2-149) 09/19/18 05:48 Cholesterol 152 mg/dL (50-199) 09/19/18 05:48 LDL Cholesterol Direct 101 mg/dL (50-130) 09/19/18 05:48 HDL Cholesterol 43 mg/dL (40-59) 09/19/18 05:48 Cholesterol/HDL Ratio 3.53 % 09/19/18 05:48 Nutrition/Malnutrition Assess - Dietary Evaluation Nutrition/Malnutrition Findings: Nutrition Notes Start: 09/19/18 14:51 Freq: Status: Active Protocol: Document 09/19/18 14:53 RM (Rec: 09/19/18 15:00 RM [id number]) Nutrition Notes Initial or Follow up Assessment Current Diagnoses Coronary Artery Disease Hypertension Heart Failure Other Pertinent Diagnosis Dementia, Pneu Current Diet Cardiac Labs/Tests Reviewed Medications Lasix Height 5 ft 7 in Weight 49.895 kg [place] Body Weight (lbs) 135.0 BMI 17.2 Subjective/Other Information Pt screened for low BMI. Pt asleep at time of visit and no family present to facilitate assessment. Noted temporal wasting. Burn Absent Trauma Absent #1 Nutrition Diagnoses Predicted suboptimal energy intake Etiology dementia As Evidenced by Signs and Symptoms pt BMI of 17.2 Is patient on ventilator? No Is Patient Ambulatory and/or Out of Bed No REE-([place]-confined to bed) 1244.400 Kcal/Kg value to use for calculation 31 Approximate Energy Requirements Using 1547 kcal/Kg Calculation Used for Recommendations Kcal/kg Additional Notes Protein Needs: 50-60g (1-1.2g/ kg) Fluid Needs: 1 ml/kcal Nutrition Intervention Change Diet Order: Continue current Add Supplement/Snack (indicate name/kcal Ensure Enlive 1 daily /protein ) Provides kCal: 350 Provides Protein (gm) 20 Goal #1 Meet at least 75% of calorie and protein needs via PO and ONS intakes Anticipated Discharge Needs: Cardiac diet Follow-Up By: 09/23/18 Additional Comments Follow for PO and ONS intakes - Attestation Statement I have reviewed and agreed w/ Malnutrition eval & tx plan: Yes
--- NOTE | 2018-09-23 13:52 | Progress Note ---
Assessment and Plan Currently stable cardiac status. Pt in asymptomatic sinus bradycardia, no AV yosef blocking agents at this time Convert IV lasix to PO 40mg daily. Continue Zestril, titrate as needed for BP control. Nothing further to add from cardiac perspective at this time. Will follow on as needed basis. The patient has been seen in conjunction with Dr. Santos who agrees with the assessment and plan of care. - Patient Problems (1) Acute HFrEF (heart failure with reduced ejection fraction) Current Visit: Yes Status: Acute (2) Pneumonia Current Visit: Yes Status: Acute Qualifiers: Pneumonia type: due to unspecified organism Laterality: right Lung location: unspecified part of lung Qualified Code(s): J18.9 - Pneumonia, unspecified organism (3) Cardiomyopathy Current Visit: Yes Status: Chronic (4) Hypertension Current Visit: Yes Status: Chronic Qualifiers: Hypertension type: essential hypertension Qualified Code(s): I10 - Essential (primary) hypertension (5) H/O supraventricular tachycardia Current Visit: Yes Status: Chronic (6) Dementia Current Visit: Yes Status: Chronic (7) Leukopenia Current Visit: Yes Status: Acute Subjective Date of service: 09/23/18 Principal diagnosis: HFrEF Interval history: pt resting in bed, no current complaints. tele reviewed - in sinus bradycardia overnight. Objective Last Vital Signs Temp 98.8 F 09/23/18 07:47 Pulse 70 09/23/18 10:00 Resp 20 09/23/18 07:47 BP 166/87 09/23/18 07:47 Pulse Ox 96 09/23/18 07:47 - Physical Examination General: No Apparent Distress HEENT: Positive: PERRL Neck: Positive: neck supple, trachea midline Cardiac: Positive: Regular Rhythm, S1/S2 Lungs: Positive: clear to auscultation Neuro: Positive: Grossly Intact, Other (dementia) Abdomen: Positive: Soft, Active Bowel Sounds. Negative: Tender Skin: Negative: Rash, Wound Musculoskeletal: No Pain Extremities: Present: edema (trace BLE) - Imaging and Cardiology EKG: report reviewed, image reviewed Echo: report reviewed (09/03/2018 showed EF 20-25%, LA severely dilated, mild MR, mod to severe TR, pseudonormalization, RV mod dilated, mild pulm HTN with RVSP 43mmHg. ) - EKG Sinus rhythms and dysrhythmias: sinus rhythm
[2018-09-23] MEDS ORDERED: ZESTRIL PO SCH (13:53)
[2018-09-23] MEDS: SODIUM CHLORIDE FLUSH SYRINGE 10 ML IV SCH (14:30)
[2018-09-24] MEDS: LASIX PO SCH (08:07)
--- NOTE | 2018-09-24 09:13 | Discharge Summary ---
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 She presented with shortness of breath. She was diagnosed with acute respiratory failure, acute on chronic systolic CHF and pneumonia. She was put on Lasix IV, antibiotics. She improved , stabilized. Patient was evaluated by physical therapy and long-term facility recommended. She is medically stable and awaiting placement to long-term facility. Patient continued to stable. Medications were adjusted as detailed below. This was educated for the patient. LISINOPRIL WAS CHANGED TO 20MG METOPROLOL DISCONTINUED DUE TO BRADYCARDIA Discharge diagnosis. Acute respiratory failure Acute on chronic, systolic CHF Pneumonia, community-acquired Hypertension Hyperlipidemia Coronary artery disease Dementia Sinus bradycardia Disposition: DC/TX-03 SNF W [facility] Time spent for discharge: 35 mins Core Measure Documentation - Palliative Care Palliative Care/ Comfort Measures: Not Applicable - Core Measures Any of the following diagnoses?: heart failure - Heart Failure Discharge Requirements JASON/ARB for LVSD if EF <40%: Yes Beta analy at discharge: No Reason for no beta analy on DC: Bradycardia Exam - Physical Exam Narrative exam: VITAL SIGNS: Reviewed. GENERAL: The patient appeared malnourished otherwise no acute clinical condition. Vital signs as documented. HEAD: No signs of head trauma. EYES: Pupils are equal. Extraocular motions intact. EARS: Hearing grossly intact. MOUTH: Oropharynx is normal. NECK: No adenopathy, no JVD. CHEST: Chest with clear breath sounds bilaterally. No wheezes, rales, or rhonchi. CARDIAC: Regular rate and rhythm. S1 and S2, without murmurs, gallops, or rubs. VASCULAR: No Edema. Peripheral pulses normal and equal in all extremities. ABDOMEN: Soft, without detectable tenderness. No sign of distention. No rebound or guarding, and no masses palpated. Bowel Sounds normal. MUSCULOSKELETAL: Good range of motion of all major joints. Extremities without clubbing, cyanosis or edema. NEUROLOGIC EXAM: Alert and oriented x 3. No focal sensory or strength deficits. Speech normal. Follows commands. PSYCHIATRIC: Mood normal. SKIN: No rash or lesions. - Constitutional Vitals: Temp Pulse Resp BP Pulse Ox 98.3 F 67 20 162/88 98 09/24/18 07:24 09/24/18 07:24 09/24/18 07:24 09/24/18 07:24 09/24/18 07:24 Plan Activity: advance as tolerated, fall precautions Diet: low fat, low salt Special Instructions: record daily weights, record daily BP diary Follow up with: PRIMARY CAREMD [Primary Care Provider] - 3-5 Days GILLES HARRIS MD [Staff Physician] - 7 Days Prescriptions: Lisinopril [Zestril TAB] 20 mg PO QDAY #30 tablet
[2018-09-24] MEDS: LOVENOX SUB-Q SCH (09:52)
[2018-09-24] MEDS: LEVAQUIN PO SCH (09:53)
[2018-09-24] MEDS: ZESTRIL PO SCH (09:53)
[2018-09-24] MEDS: BABY ASPIRIN PO SCH (09:53)
[2018-09-24] MEDS: SODIUM CHLORIDE FLUSH SYRINGE 10 ML IV SCH ×3 (09:54→21:53)
--- NOTE | 2018-09-24 16:21 | Progress Note ---
Assessment and Plan Assessment and plan: Patient is 73 yo with CHF, CAD, dementia. She presented with shortness of breath. She was diagnosed with acute respiratory failure, acute on chronic systolic CHF and pneumonia. She was put on Lasix IV, antibiotics. She improved , stabilized. Patient was evaluated by physical therapy and alf facility recommended. She is medically stable and awaiting placement to alf facility. Assessment Acute respiratory failure Acute on chronic, systolic CHF Pneumonia, community-acquired Hypertension Hyperlipidemia Coronary artery disease Dementia Sinus bradycardia Plan Continue supportive care convert Lasix to by mouth Continue JASON inhibitor, Metoprolol and hold because of sinus bradycardia aspirin Cardiology following Monitor I's and O's, daily weights Continue Levaquin for pneumonia Statin for hyperlipidemia DVT prophylaxis with Lovenox Discussed with Case management concerning placement Awaiting placement. Medically stable for dc. Awaiting family to select facility History Interval history: Patient is seen and examined, and no new complaints. Pending discharge Hospitalist Physical - Physical exam Narrative exam: VITAL SIGNS: Reviewed. GENERAL: The patient appeared malnourished otherwise no acute clinical condition. Vital signs as documented. HEAD: No signs of head trauma. EYES: Pupils are equal. Extraocular motions intact. EARS: Hearing grossly intact. MOUTH: Oropharynx is normal. NECK: No adenopathy, no JVD. CHEST: Chest with clear breath sounds bilaterally. No wheezes, rales, or rhonchi. CARDIAC: Regular rate and rhythm. S1 and S2, without murmurs, gallops, or rubs. VASCULAR: No Edema. Peripheral pulses normal and equal in all extremities. ABDOMEN: Soft, without detectable tenderness. No sign of distention. No rebound or guarding, and no masses palpated. Bowel Sounds normal. MUSCULOSKELETAL: Good range of motion of all major joints. Extremities without clubbing, cyanosis or edema. NEUROLOGIC EXAM: Alert and oriented x 3. No focal sensory or strength deficits. Speech normal. Follows commands. PSYCHIATRIC: Mood normal. SKIN: No rash or lesions. - Constitutional Vitals: Temp Pulse Resp BP Pulse Ox 99.0 F 77 20 110/66 99 09/24/18 13:10 09/24/18 13:10 09/24/18 13:10 09/24/18 13:10 09/24/18 13:10 General appearance: Present: no acute distress Results - Labs CBC & Chem 7: 09/20/18 04:54 09/20/18 04:54 Labs: Laboratory Last Values WBC 2.9 K/mm3 (4.5-11.0) L 09/20/18 04:54 RBC 4.10 M/mm3 (3.65-5.03) 09/20/18 04:54 Hgb 9.3 gm/dl (10.1-14.3) L 09/20/18 04:54 Hct 29.6 % (30.3-42.9) L 09/20/18 04:54 MCV 72 fl (79-97) L 09/20/18 04:54 MCH 23 pg (28-32) L 09/20/18 04:54 MCHC 32 % (30-34) 09/20/18 04:54 RDW 18.8 % (13.2-15.2) H 09/20/18 04:54 Plt Count 253 K/mm3 (140-440) 09/20/18 04:54 Lymph % (Auto) 34.1 % (13.4-35.0) 09/20/18 04:54 [place] % (Auto) 11.2 % (0.0-7.3) H 09/20/18 04:54 Eos % (Auto) 4.7 % (0.0-4.3) H 09/20/18 04:54 Baso % (Auto) 0.6 % (0.0-1.8) 09/20/18 04:54 Lymph # 1.0 K/mm3 (1.2-5.4) L 09/20/18 04:54 [place] # 0.3 K/mm3 (0.0-0.8) 09/20/18 04:54 Eos # 0.1 K/mm3 (0.0-0.4) 09/20/18 04:54 Baso # 0.0 K/mm3 (0.0-0.1) 09/20/18 04:54 Seg Neutrophils % 49.4 % (40.0-70.0) 09/20/18 04:54 Seg Neutrophils # 1.4 K/mm3 (1.8-7.7) L 09/20/18 04:54 D-Dimer 3766.87 ng/mlDDU (0-234) H 09/18/18 20:45 Sodium 142 mmol/L (137-145) 09/20/18 04:54 Potassium 3.9 mmol/L (3.6-5.0) 09/20/18 04:54 Chloride 102.9 mmol/L (98-107) 09/20/18 04:54 Carbon Dioxide 29 mmol/L (22-30) 09/20/18 04:54 Anion Gap 14 mmol/L 09/20/18 04:54 BUN 22 mg/dL (7-17) H 09/20/18 04:54 Creatinine 0.7 mg/dL (0.7-1.2) 09/20/18 04:54 Estimated GFR > 60 ml/min 09/20/18 04:54 BUN/Creatinine Ratio 31 % 09/20/18 04:54 Glucose 81 mg/dL (65-100) 09/20/18 04:54 POC Glucose 122 (70-105) H 09/19/18 15:21 Calcium 8.2 mg/dL (8.4-10.2) L 09/20/18 04:54 Total Creatine Kinase 57 units/L (30-135) 09/19/18 09:36 CK-MB (CK-2) 1.5 ng/mL (0.0-4.0) 09/19/18 09:36 CK-MB (CK-2) Rel Index 2.6 (0-4) 09/19/18 09:36 Troponin T 0.032 ng/mL (0.00-0.029) H D 09/19/18 09:36 NT-Pro-B Natriuret Pep 5122 pg/mL (0-900) H 09/18/18 20:45 Triglycerides 84 mg/dL (2-149) 09/19/18 05:48 Cholesterol 152 mg/dL (50-199) 09/19/18 05:48 LDL Cholesterol Direct 101 mg/dL (50-130) 09/19/18 05:48 HDL Cholesterol 43 mg/dL (40-59) 09/19/18 05:48 Cholesterol/HDL Ratio 3.53 % 09/19/18 05:48 Nutrition/Malnutrition Assess - Dietary Evaluation Nutrition/Malnutrition Findings: Nutrition Notes Start: 09/19/18 14:51 Freq: Status: Active Protocol: Document 09/23/18 16:41 RM (Rec: 09/23/18 16:45 RM [id number]) Nutrition Notes Initial or Follow up Reassessment Current Diagnoses Coronary Artery Disease Hypertension Heart Failure Other Pertinent Diagnosis Dementia, Pneu Current Diet Cardiac Labs/Tests Reviewed Medications Lasix Height 5 ft 7 in Weight 46.9 kg [place] Body Weight (lbs) 135.0 BMI 16.2 Weight change and time frame Recorded wt loss likely d/t fluid change Subjective/Other Information No family present at time of visit. Per pt tech pt does not eat much and ate only a little of her breakfast. Also stated that pt does not drink the Ensure Enlive. Burn Absent Trauma Absent #1 Nutrition Diagnoses Predicted suboptimal energy intake Diagnosis Progress(for reassessment Continues documentation) Is patient on ventilator? No Is Patient Ambulatory and/or Out of Bed No REE-([place]-. [facility]-confined to bed) 1208.496 Kcal/Kg value to use for calculation 33 Approximate Energy Requirements Using 1548 kcal/Kg Calculation Used for Recommendations Kcal/kg Additional Notes Protein Needs: 50-60g (1-1.2g/ kg) Fluid Needs: 1 ml/kcal Nutrition Intervention Change Diet Order: Continue current Add Supplement/Snack (indicate name/kcal D/C Ensure Enlive /protein ) Goal #1 Meet at least 75% of calorie and protein needs via PO and ONS intakes Anticipated Discharge Needs: Cardiac diet Follow-Up By: 09/26/18 Additional Comments Follow for PO intakes
[2018-09-24] MEDS: TYLENOL PO PRN (21:51)
[2018-09-25] MEDS: LASIX PO SCH (05:47)
--- NOTE | 2018-09-25 09:03 | Query-Infection ---
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 Questions asked do not imply a particular answer is desired or expected. We greatly appreciate your clarification on this issue. Clinical Documentation States: 72-year-old woman with no hypertension, CHF, coronary artery disease dementia comes emergency room with complaints of shortness of breath, lower extremity edema .The patient was just discharged from the hospital on September 13, she was treated for CHF, pneumonia. She still has a cough, she does not know the color of the phlegm. Clinical findings show: (please check applicable parameters) RR (09/18): 31 WBC (09/18): 2.9 Infection, known /suspected, with some of the following indicators; Specify the infection: General parameters [ ] Fever (core temp >38.30C or 100.40F) [ ] Hypothermia (core temp <36C) [ ] Heart rate >90 bpm [X ] Tachypnea: >20 bpm or pCO2 < 32 mmHg [ ] Altered mental status [ ] Significant edema / +ve fluid balance (>20 ml/kg 24 h) [ ] Hyperglycemia (Bl. glucose >110 mg/dl) w/o diabetes Inflammatory parameters [ ] Leukocytosis (white blood cell count >12,000/l) [X ] Leukopenia (white blood cell count <4,000/l) [ ] Bandemia (immature WBC > 10%) [ ] Leucocyte Left Shift [ ] Plasma procalcitonin>2 SD above the normal value Hemodynamic and tissue perfusion parameters [ ] Arterial hypotension(SBP <90 mmHg, MAP <70 mmHg,or a SBP drop >40 mmHg in adults) [ ] Hyperlactatemia (>3 mmol/l) [ ] Anion Gap (> 11mEG/l) [ ] Decreased capillary refill or mottling Organ dysfunction parameters [ ] Arterial hypoxemia (PaO2/FIO2 <300) [ ] Creatinine increase =0.5 mg/dl [ ] Acute oliguria (urine output <0.5 ml | kg |h or 45 mM/l for at least 2 hrs) [ ] Coagulation abnormalities (INR >1.5 or activated partial thromboplastin time >60 s) [ ] Ileus (absent cecelia wel sounds) [ ] Thrombocytopenia (platelet count <100,000/l) [ ] Hyperbilirubinemia (plasma total bilirubin >4 mg/dl) According to the clinical indications above, can Bacteremia be further specified? If so, please indicate below and in your Progress Notes and/ or Discharge Summary. Indicate if the condition was present on admission. PHYSICIAN RESPONSE: [ ] Sepsis [ ] Severe Sepsis [ ] Septic Shock [ ] Septicemia [ ] Sepsis now resolved [ ] SIRS due to non-infectious cause with organ dysfunction [ X] SIRS due to non-infectious cause without organ dysfunction [ ] Other: [ ] Comment/Explanation: Present on Admission: [ X] Yes (Y) [ ] Clinically undeterminable (W) [ ] No (N) [ ] Ruled Out Please also document response in your Progress Notes and/or Discharge Summary and indicate if the condition was present on admission Notes: SIRS/ SIRS WITH ORGAN DYSFUNCTION Systemic inflammatory response syndrome (SIRS) generally refers to the systemic response to trauma/enriquez or other insult such as Acute Myocardial Infarction, Acute Pancreatitis, and Major Surgery with symptoms including fever, tachycardia, tachypnea, and leukocytosis (1). BACTEREMIA Presence of viable bacteria in the circulating blood (2). This term is reserved for patients that do not manifest above SIRS response. SEPTICEMIA Generally refers to a systemic disease associated with the presence of pathological microorganisms or toxins in the blood, which can include bacteria, viruses, fungi or other organisms (1). SEPSIS Generally refers to SIRS due infection (1). SEVERE SEPSIS Generally refers to sepsis associated with acute organ dysfunction (1). SEPTIC SHOCK Generally refers to circulatory failure associated with severe sepsis (2), and defined as hypotension or hypoperfusion despite adequate fluid resuscitation (1 hour) (3). REFERENCES: 1. [place] [employer]/Society of Critical Care Medicine Consensus Conference. Definitions for sepsis and organ failure and guidelines for the use of innovative therapies in sepsis. Critical Care Med 1992;20:864 - 74. 2. Francis thibodeaux MM, Harvinder BHAGAT, Kenny BAXTER, Trevor E, Isaak D, Vikas Boston, Celestine J, Rubi SM, Edwin JL, Everardo G; International Sepsis Definitions Conference. 2001 SCCM/ESICM/ACCP/ATS/SIS International Sepsis Definitions Conference. Intensive Care Med. 2002;29(4):530-8. Epub 2002Dec 12. Review. PubMed PMID:[id number] 3. ICD-9-CM Official Guidelines for Coding and Reporting 4. Medscape Drugs, Diseases and Procedures references 5. [employer] Textbook of Internal Medicine. 18th Edition MTDD"
[2018-09-25] MEDS: LOVENOX SUB-Q SCH (09:44)
[2018-09-25] MEDS: BABY ASPIRIN PO SCH (09:44)
[2018-09-25] MEDS: LEVAQUIN PO SCH (09:44)
[2018-09-25] MEDS: ZESTRIL PO SCH (09:44)
[2018-09-25] MEDS: SODIUM CHLORIDE FLUSH SYRINGE 10 ML IV SCH ×2 (10:00→22:49)
--- NOTE | 2018-09-25 14:18 | Progress Note ---
Assessment and Plan Assessment and plan: Patient is 73 yo with CHF, CAD, dementia. She presented with shortness of breath. She was diagnosed with acute respiratory failure, acute on chronic systolic CHF and pneumonia. She was put on Lasix IV, antibiotics. She improved , stabilized. Patient was evaluated by physical therapy and senior care facility recommended. She is medically stable and awaiting placement to senior care facility. Assessment Acute respiratory failure Acute on chronic, systolic CHF Pneumonia, community-acquired Hypertension Hyperlipidemia Coronary artery disease Dementia Sinus bradycardia Plan Continue supportive care convert Lasix to by mouth Continue JASON inhibitor, Metoprolol and hold because of sinus bradycardia aspirin Cardiology following Monitor I's and O's, daily weights Continue Levaquin for pneumonia Statin for hyperlipidemia DVT prophylaxis with Lovenox Discussed with Case management concerning placement Awaiting placement. Medically stable for dc. Awaiting family to select facility History Interval history: Patient is seen and examined, and no new complaints. Sitting up in chair today. Pending discharge Hospitalist Physical - Physical exam Narrative exam: VITAL SIGNS: Reviewed. GENERAL: The patient appeared malnourished otherwise no acute clinical condition. Vital signs as documented. HEAD: No signs of head trauma. EYES: Pupils are equal. Extraocular motions intact. EARS: Hearing grossly intact. MOUTH: Oropharynx is normal. NECK: No adenopathy, no JVD. CHEST: Chest with clear breath sounds bilaterally. No wheezes, rales, or rhonchi. CARDIAC: Regular rate and rhythm. S1 and S2, without murmurs, gallops, or rubs. VASCULAR: No Edema. Peripheral pulses normal and equal in all extremities. ABDOMEN: Soft, without detectable tenderness. No sign of distention. No rebound or guarding, and no masses palpated. Bowel Sounds normal. MUSCULOSKELETAL: Good range of motion of all major joints. Extremities without clubbing, cyanosis or edema. NEUROLOGIC EXAM: Alert and oriented x 3. No focal sensory or strength deficits. Speech normal. Follows commands. PSYCHIATRIC: Mood normal. SKIN: No rash or lesions. - Constitutional Vitals: Temp Pulse Resp BP Pulse Ox 98.4 F 59 L 20 148/87 99 09/25/18 08:55 09/25/18 10:00 09/25/18 10:00 09/25/18 09:44 09/25/18 08:55 General appearance: Present: no acute distress Results - Labs CBC & Chem 7: 09/20/18 04:54 09/20/18 04:54 Labs: Laboratory Last Values WBC 2.9 K/mm3 (4.5-11.0) L 09/20/18 04:54 RBC 4.10 M/mm3 (3.65-5.03) 09/20/18 04:54 Hgb 9.3 gm/dl (10.1-14.3) L 09/20/18 04:54 Hct 29.6 % (30.3-42.9) L 09/20/18 04:54 MCV 72 fl (79-97) L 09/20/18 04:54 MCH 23 pg (28-32) L 09/20/18 04:54 MCHC 32 % (30-34) 09/20/18 04:54 RDW 18.8 % (13.2-15.2) H 09/20/18 04:54 Plt Count 253 K/mm3 (140-440) 09/20/18 04:54 Lymph % (Auto) 34.1 % (13.4-35.0) 09/20/18 04:54 [place] % (Auto) 11.2 % (0.0-7.3) H 09/20/18 04:54 Eos % (Auto) 4.7 % (0.0-4.3) H 09/20/18 04:54 Baso % (Auto) 0.6 % (0.0-1.8) 09/20/18 04:54 Lymph # 1.0 K/mm3 (1.2-5.4) L 09/20/18 04:54 [place] # 0.3 K/mm3 (0.0-0.8) 09/20/18 04:54 Eos # 0.1 K/mm3 (0.0-0.4) 09/20/18 04:54 Baso # 0.0 K/mm3 (0.0-0.1) 09/20/18 04:54 Seg Neutrophils % 49.4 % (40.0-70.0) 09/20/18 04:54 Seg Neutrophils # 1.4 K/mm3 (1.8-7.7) L 09/20/18 04:54 D-Dimer 3766.87 ng/mlDDU (0-234) H 09/18/18 20:45 Sodium 142 mmol/L (137-145) 09/20/18 04:54 Potassium 3.9 mmol/L (3.6-5.0) 09/20/18 04:54 Chloride 102.9 mmol/L (98-107) 09/20/18 04:54 Carbon Dioxide 29 mmol/L (22-30) 09/20/18 04:54 Anion Gap 14 mmol/L 09/20/18 04:54 BUN 22 mg/dL (7-17) H 09/20/18 04:54 Creatinine 0.7 mg/dL (0.7-1.2) 09/20/18 04:54 Estimated GFR > 60 ml/min 09/20/18 04:54 BUN/Creatinine Ratio 31 % 09/20/18 04:54 Glucose 81 mg/dL (65-100) 09/20/18 04:54 POC Glucose 122 (70-105) H 09/19/18 15:21 Calcium 8.2 mg/dL (8.4-10.2) L 09/20/18 04:54 Total Creatine Kinase 57 units/L (30-135) 09/19/18 09:36 CK-MB (CK-2) 1.5 ng/mL (0.0-4.0) 09/19/18 09:36 CK-MB (CK-2) Rel Index 2.6 (0-4) 09/19/18 09:36 Troponin T 0.032 ng/mL (0.00-0.029) H D 09/19/18 09:36 NT-Pro-B Natriuret Pep 5122 pg/mL (0-900) H 09/18/18 20:45 Triglycerides 84 mg/dL (2-149) 09/19/18 05:48 Cholesterol 152 mg/dL (50-199) 09/19/18 05:48 LDL Cholesterol Direct 101 mg/dL (50-130) 09/19/18 05:48 HDL Cholesterol 43 mg/dL (40-59) 09/19/18 05:48 Cholesterol/HDL Ratio 3.53 % 09/19/18 05:48 Nutrition/Malnutrition Assess - Dietary Evaluation Nutrition/Malnutrition Findings: Nutrition Notes Start: 09/19/18 14:51 Freq: Status: Active Protocol: Document 09/23/18 16:41 RM (Rec: 09/23/18 16:45 RM [id number]) Nutrition Notes Initial or Follow up Reassessment Current Diagnosis Coronary Artery Disease Hypertension Heart Failure Other Pertinent Diagnosis Dementia, Pneu Current Diet Cardiac Labs/Tests Reviewed Pertinent Medications Lasix Height 5 ft 7 in Weight 46.9 kg [place] Body Weight (lbs) 135.0 BMI 16.2 Weight change and time frame Recorded wt loss likely d/t fluid change Subjective/Other Information No family present at time of visit. Per pt tech pt does not eat much and ate only a little of her breakfast. Also stated that pt does not drink the Ensure Enlive. Burn Absent Trauma Absent #1 Nutrition Diagnosis Predicted suboptimal energy intake Diagnosis Progress(for reassessment Continues documentation) Is patient on ventilator? No Is Patient Ambulatory and/or Out of Bed No REE-([place]-. [facility]-confined to bed) 1208.496 Kcal/Kg value to use for calculation 33 Approximate Energy Requirements Using 1548 kcal/Kg Calculation Used for Recommendations Kcal/kg Additional Notes Protein Needs: 50-60g (1-1.2g/ kg) Fluid Needs: 1 ml/kcal Nutrition Intervention Change Diet Order: Continue current Add Supplement/Snack (indicate name/kcal D/C Ensure Enlive /protein ) Goal #1 Meet at least 75% of calorie and protein needs via PO and ONS intakes Anticipated Discharge Needs: Cardiac diet Follow-Up By: 09/26/18 Additional Comments Follow for PO intakes
[2018-09-25] MEDS: TYLENOL PO PRN (22:48)
[2018-09-26] MEDS: LASIX PO SCH (06:31)
[2018-09-26] MEDS: TYLENOL PO PRN ×2 (06:39→15:59)
[2018-09-26] MEDS: SODIUM CHLORIDE FLUSH SYRINGE 10 ML IV SCH (10:05)
[2018-09-26] MEDS: ZESTRIL PO SCH (10:05)
[2018-09-26] MEDS: LOVENOX SUB-Q SCH (10:05)
[2018-09-26] MEDS: LEVAQUIN PO SCH (10:05)
[2018-09-26] MEDS: BABY ASPIRIN PO SCH (10:05)
--- NOTE | 2018-09-26 13:34 | Progress Note ---
Assessment and Plan Assessment and plan: Patient is 73 yo with CHF, CAD, dementia. She presented with shortness of breath. She was diagnosed with acute respiratory failure, acute on chronic systolic CHF and pneumonia. She was put on Lasix IV, antibiotics. She improved , stabilized. Patient was evaluated by physical therapy and long-term facility recommended. She is medically stable and awaiting placement to long-term facility. Assessment Acute respiratory failure Acute on chronic, systolic CHF Pneumonia, community-acquired Hypertension Hyperlipidemia Coronary artery disease Dementia Sinus bradycardia Plan Continue supportive care convert Lasix to by mouth Continue JASON inhibitor, Metoprolol and hold because of sinus bradycardia aspirin Monitor I's and O's, daily weights Continue Levaquin for pneumonia Statin for hyperlipidemia DVT prophylaxis with Lovenox Discussed with Case management concerning placement Awaiting placement. Medically stable for dc. Awaiting family to select facility History Interval history: Patient is seen and examined, and no new complaints. no issues noted overnight Hospitalist Physical - Physical exam Narrative exam: VITAL SIGNS: Reviewed. GENERAL: The patient appeared malnourished otherwise no acute clinical condition. Vital signs as documented. HEAD: No signs of head trauma. cachetic EYES: Pupils are equal. Extraocular motions intact. EARS: Hearing grossly intact. MOUTH: Oropharynx is normal. NECK: No adenopathy, no JVD. CHEST: Chest with clear breath sounds bilaterally. No wheezes, rales, or rhonchi. CARDIAC: Regular rate and rhythm. S1 and S2, without murmurs, gallops, or rubs. VASCULAR: No Edema. Peripheral pulses normal and equal in all extremities. ABDOMEN: Soft, without detectable tenderness. No sign of distention. No rebound or guarding, and no masses palpated. Bowel Sounds normal. MUSCULOSKELETAL: Good range of motion of all major joints. Extremities without clubbing, cyanosis or edema. NEUROLOGIC EXAM: Alert and oriented x 3. No focal sensory or strength deficits. Speech normal. Follows commands. PSYCHIATRIC: Mood normal. SKIN: No rash or lesions. - Constitutional Vitals: Temp Pulse Resp BP Pulse Ox 98.7 F 67 20 152/75 100 09/26/18 07:32 09/26/18 07:32 09/26/18 07:32 09/26/18 07:32 09/26/18 07:32 General appearance: Present: no acute distress Results - Labs CBC & Chem 7: 09/20/18 04:54 09/20/18 04:54 Labs: Laboratory Last Values WBC 2.9 K/mm3 (4.5-11.0) L 09/20/18 04:54 RBC 4.10 M/mm3 (3.65-5.03) 09/20/18 04:54 Hgb 9.3 gm/dl (10.1-14.3) L 09/20/18 04:54 Hct 29.6 % (30.3-42.9) L 09/20/18 04:54 MCV 72 fl (79-97) L 09/20/18 04:54 MCH 23 pg (28-32) L 09/20/18 04:54 MCHC 32 % (30-34) 09/20/18 04:54 RDW 18.8 % (13.2-15.2) H 09/20/18 04:54 Plt Count 253 K/mm3 (140-440) 09/20/18 04:54 Lymph % (Auto) 34.1 % (13.4-35.0) 09/20/18 04:54 [place] % (Auto) 11.2 % (0.0-7.3) H 09/20/18 04:54 Eos % (Auto) 4.7 % (0.0-4.3) H 09/20/18 04:54 Baso % (Auto) 0.6 % (0.0-1.8) 09/20/18 04:54 Lymph # 1.0 K/mm3 (1.2-5.4) L 09/20/18 04:54 [place] # 0.3 K/mm3 (0.0-0.8) 09/20/18 04:54 Eos # 0.1 K/mm3 (0.0-0.4) 09/20/18 04:54 Baso # 0.0 K/mm3 (0.0-0.1) 09/20/18 04:54 Seg Neutrophils % 49.4 % (40.0-70.0) 09/20/18 04:54 Seg Neutrophils # 1.4 K/mm3 (1.8-7.7) L 09/20/18 04:54 D-Dimer 3766.87 ng/mlDDU (0-234) H 09/18/18 20:45 Sodium 142 mmol/L (137-145) 09/20/18 04:54 Potassium 3.9 mmol/L (3.6-5.0) 09/20/18 04:54 Chloride 102.9 mmol/L (98-107) 09/20/18 04:54 Carbon Dioxide 29 mmol/L (22-30) 09/20/18 04:54 Anion Gap 14 mmol/L 09/20/18 04:54 BUN 22 mg/dL (7-17) H 09/20/18 04:54 Creatinine 0.7 mg/dL (0.7-1.2) 09/20/18 04:54 Estimated GFR > 60 ml/min 09/20/18 04:54 BUN/Creatinine Ratio 31 % 09/20/18 04:54 Glucose 81 mg/dL (65-100) 09/20/18 04:54 POC Glucose 122 (70-105) H 09/19/18 15:21 Calcium 8.2 mg/dL (8.4-10.2) L 09/20/18 04:54 Total Creatine Kinase 57 units/L (30-135) 09/19/18 09:36 CK-MB (CK-2) 1.5 ng/mL (0.0-4.0) 09/19/18 09:36 CK-MB (CK-2) Rel Index 2.6 (0-4) 09/19/18 09:36 Troponin T 0.032 ng/mL (0.00-0.029) H D 09/19/18 09:36 NT-Pro-B Natriuret Pep 5122 pg/mL (0-900) H 09/18/18 20:45 Triglycerides 84 mg/dL (2-149) 09/19/18 05:48 Cholesterol 152 mg/dL (50-199) 09/19/18 05:48 LDL Cholesterol Direct 101 mg/dL (50-130) 09/19/18 05:48 HDL Cholesterol 43 mg/dL (40-59) 09/19/18 05:48 Cholesterol/HDL Ratio 3.53 % 09/19/18 05:48 Nutrition/Malnutrition Assess - Dietary Evaluation Nutrition/Malnutrition Findings: Nutrition Notes Start: 09/19/18 14:51 Freq: Status: Active Protocol: Document 09/26/18 11:42 CT (Rec: 09/26/18 12:36 CT [id number]) Co-Sign 09/26/18 11:42 RM Nutrition Notes Initial or Follow up Reassessment Current Diagnosis Coronary Artery Disease Hypertension Heart Failure Other Pertinent Diagnosis Dementia, Pneu Current Diet Cardiac Labs/Tests Reviewed Pertinent Medications Lasix Height 5 ft 7 in Weight 46.9 kg [place] Body Weight (lbs) 135.0 BMI 16.2 Subjective/Other Medical Technologist Hematology did not have pt until this morning and stated pt ate 100% of tray for breakfast. Burn Absent Trauma Absent #1 Nutrition Diagnosis Predicted suboptimal energy intake As Evidenced by Signs and Symptoms tech statement: 100% of breakfast Diagnosis Progress(for reassessment Improved documentation) Is patient on ventilator? No Is Patient Ambulatory and/or Out of Bed No REE-([place]-confined to bed) 1208.496 Kcal/Kg value to use for calculation 33 Approximate Energy Requirements Using 1548 kcal/Kg Calculation Used for Recommendations Kcal/kg Additional Notes Protein Needs: 50-60g (1-1.2g/ kg) Fluid Needs: 1 ml/kcal Nutrition Intervention Change Diet Order: Continue current Add Supplement/Snack (indicate name/kcal Ensure Clear daily /protein ) Provides kCal: 240 Provides Protein (gm) 8 Goal #1 Meet at least 75% of calorie and protein needs via PO and ONS intake. Anticipated Discharge Needs: Cardiac diet Follow-Up By: 09/30/18 Additional Comments F/U: PO intakes
[2018-09-26 14:18] VITALS: BP 146/84
== END 2018-09-26 17:30 | DRG 291 ==
LOC: ED 19:28 → 4A 09-19 02:09 → 2B-ACE 09-22 12:39
PROVIDERS: ADMIT Internal Medicine; ATTEND Internal Medicine
DX: I11.0 Hypertensive heart disease with heart failure (principal); J18.9 Pneumonia, unspecified organism; J96.00 Acute respiratory failure, unspecified whether with hypoxia or hypercapnia; R65.10 Systemic inflammatory response syndrome (SIRS) of non-infectious origin without acute organ dysfunction; I50.23 Acute on chronic systolic (congestive) heart failure; I25.10 Atherosclerotic heart disease of native coronary artery without angina pectoris; F03.90 Unspecified dementia, unspecified severity, without behavioral disturbance, psychotic disturbance, mood disturbance, and anxiety; E78.5 Hyperlipidemia, unspecified; I42.9 Cardiomyopathy, unspecified; Z79.899 Other long term (current) drug therapy; Z79.82 Long term (current) use of aspirin
CPT/HCPCS: 36415; 71045; 71275; 80048; 80061; 82550; 82553; 82962; 83880; 84484; 85025; 85379; 93005; 93010; 96365; 96368; G0378; A9270-GY; G8978-GP; G8979-GP; J0456; J0696; J1650; J1940; J7050; Q9967